=== PATIENT | male | born 1990 | race Caucasian/White ===

== ENCOUNTER 2016-11-24 11:44 | Emergency (ER) | payer SELFPAY ==
[2016-11-24] MEDS ORDERED: Ketorolac INJ* 30 MG/ML 1 ML VIAL IV ONE (12:20)
[2016-11-24] MEDS ORDERED: NS 0.9% 1000 ML* 2,000 ML IV ONE (12:20)
[2016-11-24] MEDS ORDERED: Ondansetron INJ* 2 MG/ML VIAL IV ONE (12:20)
[2016-11-24 12:30] LABS: Hematocrit 46 % (42-52); Hemoglobin 15.8 g/dl (14.0-18.0); Mean Corpuscular HGB Conc 34 g/dl (31-36); Mean Corpuscular Hemoglobin 29 pg (27-31); Mean Corpuscular Volume 85 fL (80-94); Mean Platelet Volume 7 um3 (7.4-10.4); Red Blood Count 5.45 10^6/ul (4.0-5.4); Red Cell Distribution Width 13 % (10.5-15)
--- NOTE | 2016-11-24 12:50 | RAD ---
INDICATION: Right flank pain COMPARISON: CT July 19, 2014 TECHNIQUE: Noncontrast axial source images were acquired from the level hemidiaphragms to the symphysis pubis as part of CT imaging for renal stone. Lung bases: The lung bases are clear. Liver: The liver is normal in size. Noncontrast imaging shows no evidence of a hepatic mass or ductal dilatation. Gallbladder: There are no calcified gallstones. There is no evidence of wall thickening or pericholecystic fluid.. Spleen: The spleen is normal in size. The noncontrast CT appearance is normal. Pancreas: Noncontrast imaging shows no pancreatic mass or ductal dilitation. Adrenal glands: No masses are identified. Kidneys/Bladder: There is no evidence of nephrolithiasis or CT evidence of hydronephrosis. Noncontrast imaging shows no evidence of a renal mass. The bladder is unremarkable.. Adenopathy: There is no evidence of intraperitoneal or retroperitoneal adenopathy. Evaluation is limited without oral contrast. Fluid collections: There are no free or localized fluid collections. Vessels: The aorta and iliac vessels are normal in caliber. There are no significant atherosclerotic changes. The IVC appears normal Pelvic organs: The prostate and seminal vesicles appear normal GI tract: Evaluation of the bowel is limited without oral contrast. The stomach, small bowel, and lower GI tract appear grossly normal. There are no obstructive findings. The appendix is visualized and appears normal. Soft tissues: No soft tissue abnormalities of the extraperitoneal abdomen or pelvis are identified. Osseous structures: There are no acute osseous findings. IMPRESSION: NO ACUTE CT FINDINGS. NO EVIDENCE OF NEPHROLITHIASIS. NO MASS OR INFLAMMATORY CHANGE. NORMAL APPENDIX
[2016-11-24 12:54] LABS: ALT 20 U/L (7-52); AST 19 U/L (13-39); Albumin 4.3 g/dL (3.2-5.2); Alkaline Phosphatase 72 U/L (34-104); Anion Gap 9 mmol/L (2-11); BUN/Creatinine Ratio 12.8 (8-20); Blood Urea Nitrogen 12 mg/dL (6-24); C Reactive Protein 95.79 mg/L (< 5.00); CO2 Carbon Dioxide 26 mmol/L (22-32); Calcium 9.6 mg/dL (8.6-10.3); Chloride 98 mmol/L (101-111); EGFR African American 122.9 (>60); EGFR Non-African American 95.6 (>60); Globulin 4.5 g/dL (2-4); Glucose 98 mg/dL (70-100); Lipase < 10 U/L (11.0-82.0); Potassium 3.6 mmol/L (3.5-5.0); Sodium 133 mmol/L (133-145); Total Protein 8.8 g/dL (6.4-8.9)
[2016-11-24 13:46] LABS: Urine Bacteria Absent (Absent); Urine Bilirubin Negative (Negative); Urine Glucose Negative (Negative); Urine Nitrite Negative (Negative)
--- NOTE | 2016-11-24 14:15 | RAD ---
INDICATION: Right testicular pain COMPARISON: None TECHNIQUE: Duplex interrogation of the scrotum was performed. FINDINGS: Testicles: The testicles are Normal in size. 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 There is no evidence of testicular mass. There is symmetric flow on Doppler interrogation. There is no evidence of torsion.. The right testis measures 4.1 x 2.6 x 2.6 cm and the left 3.9 x 2.5 x 3.0 cm. There is symmetric flow on Doppler interrogation. Epididymides: There is no evidence of an epididymal mass. The epididymides are normal in size. There is symmetric flow on Doppler interrogation. The right epididymal head measures 0.9 x 1.0 cm and the left 0.8 x 1.0 cm. Hydroceles: None. Varicoceles: None. Other: None. IMPRESSION: NO EVIDENCE OF TESTICULAR MASS OR TORSION. TESTICULAR MICROLITHIASIS.
[2016-11-24] MEDS ORDERED: Ciprofloxacin TAB* 500 MG PO ONE (14:54)
[2016-11-24] MEDS ORDERED: metroNIDAZOLE TAB* 250 MG PO ONE (14:54)
--- NOTE | 2016-11-24 15:03 | ED ---
Karl Huerta Billy, scribed for Gavino Sharpe MD on 11/24/16 at 1232 . GI/ HPI - HPI Summary HPI Summary: 26 yo male arrived to the ED complaining of right flank pain beginning three days ago, progressively worse since last night. Patient currently rates his pain at 5/10 here in the ED; he describes a "dull ache." However, the pain at its peak was 9/10 and has been waxing and waning since onset. Additionally, the patient is experiencing right suprapubic and groin pain which he describes as a "bubbly, cramping" sensation, which radiates to his right testicle. He also complains of difficulty urinating, increased urinary frequency, subjective fever , chills, diaphoresis, N/V/D. However, he denies any hematuria or testicular swelling. His symptoms are consistent with a previous kidney stone, which was removed surgically one year ago. The patient has a history of kidney stones and testicular pain (he reports previous epididymitis treated with antibiotics). He follows Dr. Solorzano (urologist). Appendix and gallbladder are intact. - History of Current Complaint Chief Complaint: EDFlankPain Time Seen by Provider: 11/24/16 12:08 Stated Complaint: RT SIDE FLANK/KIDNEY PAIN Hx Obtained From: Patient Onset/Duration: Started Days Ago, Still Present, Worse Since - last night Timing: Constant - pain waxes and wanes, Lasting Days Severity: Moderate Current Severity: Moderate Pain Intensity: 5 - Currently rated as 5/10, previously 9/10 Location of Pain: Radiates to: - Abdomen, right testicle, Suprapubic, Groin, Flank - Right Additional Locations for Males: Testicles - Right Testicle pain Pain Characteristics: Cramping, Other: - bubbly, gassy feeling Associated Signs and Symptoms: Positive: Nausea, Vomiting - dry heaving, Diarrhea, Diaphoresis, Fever, Dysuria, Flank Pain - right flank pain, Chills, Abdominal Pain. Negative: Hematuria Additional Signs & Symptoms: Negative: Penile Swelling - negative for testicular swelling Alleviating Factor(s): Nothing - Additional Pertinent History Have you ever had this problem before: Yes - Allergy/Home Medications Allergies/Adverse Reactions: Allergies Allergy/AdvReac Type Severity Reaction Status Date / Time No Known Allergies Allergy Verified 11/24/16 11:46 PMH/Surg Hx/FS Hx/Imm Hx Cardiovascular History: Denies: Hx Coronary Artery Disease, Hx Myocardial Infarction History: Reports: Hx Kidney Stones - RIGHT. Stents placed., Other Problems /Disorders - UTIs - Surgical History Surgery Procedure, Year, and Place: [facility] Stent placement 2014 Hx Anesthesia Reactions: No Other Surgical History: negative for cholecystectomy Infectious Disease History: No Infectious Disease History: Denies: Hx Clostridium Difficile, Hx Hepatitis, Hx Human Immunodeficiency Virus (HIV), Hx of Known/Suspected MRSA, Hx Shingles, Hx Tuberculosis, Hx Known/ Suspected VRE, Hx Known/Suspected VRSA, History Other Infectious Disease, Traveled Outside the [place] in Last 30 Days - Family History Family History: Mother is 47, alive with scoliosis. Father is 49, alive and well. - Social History Lives: With Family Alcohol Use: Occasionally Alcohol Amount: a few times a month Substance Use Type: Reports: None Smoking Status (MU): Never Smoked Tobacco Have You Smoked in the Last Year: No Review of Systems Positive: Fever, Chills, Skin Diaphoresis Positive: Abdominal Pain, Vomiting - dry heaving, Diarrhea, Nausea Positive: dysuria - painful urination , frequency, flank pain, urgency, other - testicular pain. Negative: hematuria All Other Systems Reviewed And Are Negative: Yes Physical Exam Triage Information Reviewed: Yes Vital Signs On Initial Exam: Initial Vitals Temp Pulse Resp BP Pulse Ox 97.9 F 120 20 114/69 99 11/24/16 11:46 11/24/16 11:46 11/24/16 11:46 11/24/16 11:46 11/24/16 11:46 Vital Signs Reviewed: Yes Appearance: Positive: Well-Appearing, No Pain Distress Skin: Positive: Warm, Skin Color Reflects Adequate Perfusion, Dry Head/Face: Positive: Normal Head/Face Inspection Eyes: Positive: EOMI, LUCHO ENT: Positive: Normal ENT inspection Neck: Positive: Supple, Nontender Respiratory/Lung Sounds: Positive: Clear to Auscultation, Breath Sounds Present Cardiovascular: Positive: RRR Abdomen Description: Positive: Nontender, Soft. Negative: CVA Tenderness (R), CVA Tenderness (L) Bowel Sounds: Positive: Present Male Genital Exam: Positive: normal genitalia - no testicular sweling, testicular tenderness (R) - minimal tenderness of right testical. Negative: lesions Musculoskeletal: Positive: Normal Neurological: Positive: Normal, Sensory/Motor Intact, Alert, Oriented to Person Place, Time Psychiatric: Positive: Affect/Mood Appropriate Diagnostics - Vital Signs Vital Signs Temp Pulse Resp BP Pulse Ox 11/24/16 11:46 97.9 F 120 20 114/69 99 - Laboratory Lab Results: Lab Results 11/24/16 11/24/16 11/24/16 Range/Units 12:20 12:20 12:20 WBC 14.0 H (3.5-10.8) 10^3/ul RBC 5.45 H (4.0-5.4) 10^6/ul Hgb 15.8 (14.0-18.0) g/dl Hct 46 (42-52) % MCV 85 (80-94) fL MCH 29 (27-31) pg MCHC 34 (31-36) g/dl RDW 13 (10.5-15) % Plt Count 308 (150-450) 10^3/ul MPV 7 L (7.4-10.4) um3 Neut % (Auto) 70.2 (38-83) % Lymph % (Auto) 18.7 L (25-47) % Cochran % (Auto) 10.0 H (1-9) % Eos % (Auto) 0.3 (0-6) % Baso % (Auto) 0.8 (0-2) % Absolute Neuts (auto) 9.8 H (1.5-7.7) 10^3/ul Absolute Lymphs (auto) 2.6 (1.0-4.8) 10^3/ul Absolute Monos (auto) 1.4 H (0-0.8) 10^3/ul Absolute Eos (auto) 0 (0-0.6) 10^3/ul Absolute Basos (auto) 0.1 (0-0.2) 10^3/ul Absolute Nucleated RBC 0 10^3/ul Nucleated RBC % 0 INR (Anticoag Therapy) 1.13 H (0.89-1.11) APTT 31.4 (26.0-36.3) seconds Sodium 133 (133-145) mmol/L Potassium 3.6 (3.5-5.0) mmol/L Chloride 98 L (101-111) mmol/L Carbon Dioxide 26 (22-32) mmol/L Anion Gap 9 (2-11) mmol/L BUN 12 (6-24) mg/dL Creatinine 0.94 (0.67-1.17) mg/dL Est GFR ( Amer) 122.9 (>60) Est GFR (Non-Af Amer) 95.6 (>60) BUN/Creatinine Ratio 12.8 (8-20) Glucose 98 (70-100) mg/dL Lactic Acid (0.5-2.0) mmol/L Calcium 9.6 (8.6-10.3) mg/dL Total Bilirubin 0.60 (0.2-1.0) mg/dL AST 19 (13-39) U/L ALT 20 (7-52) U/L Alkaline Phosphatase 72 (34-104) U/L C-Reactive Protein 95.79 H (< 5.00) mg/L Total Protein 8.8 (6.4-8.9) g/dL Albumin 4.3 (3.2-5.2) g/dL Globulin 4.5 H (2-4) g/dL Albumin/Globulin Ratio 1.0 (1-3) Lipase < 10 L (11.0-82.0) U/L Urine Color Urine Appearance Urine pH (5-9) Ur Specific [place] (1.010-1.030) Urine Protein (Negative) Urine Ketones (Negative) Urine Blood (Negative) Urine Nitrate (Negative) Urine Bilirubin (Negative) Urine Urobilinogen (Negative) Ur Leukocyte Esterase (Negative) Urine WBC (Auto) (Absent) Urine RBC (Auto) (Absent) Ur Squamous Epith Cells (Absent) Urine Bacteria (Absent) Urine Glucose (Negative) 11/24/16 11/24/16 Range/Units 12:20 13:15 WBC (3.5-10.8) 10^3/ul RBC (4.0-5.4) 10^6/ul Hgb (14.0-18.0) g/dl Hct (42-52) % MCV (80-94) fL MCH (27-31) pg MCHC (31-36) g/dl RDW (10.5-15) % Plt Count (150-450) 10^3/ul MPV (7.4-10.4) um3 Neut % (Auto) (38-83) % Lymph % (Auto) (25-47) % Cochran % (Auto) (1-9) % Eos % (Auto) (0-6) % Baso % (Auto) (0-2) % Absolute Neuts (auto) (1.5-7.7) 10^3/ul Absolute Lymphs (auto) (1.0-4.8) 10^3/ul Absolute Monos (auto) (0-0.8) 10^3/ul Absolute Eos (auto) (0-0.6) 10^3/ul Absolute Basos (auto) (0-0.2) 10^3/ul Absolute Nucleated RBC 10^3/ul Nucleated RBC % INR (Anticoag Therapy) (0.89-1.11) APTT (26.0-36.3) seconds Sodium (133-145) mmol/L Potassium (3.5-5.0) mmol/L Chloride (101-111) mmol/L Carbon Dioxide (22-32) mmol/L Anion Gap (2-11) mmol/L BUN (6-24) mg/dL Creatinine (0.67-1.17) mg/dL Est GFR ( Amer) (>60) Est GFR (Non-Af Amer) (>60) BUN/Creatinine Ratio (8-20) Glucose (70-100) mg/dL Lactic Acid 1.0 (0.5-2.0) mmol/L Calcium (8.6-10.3) mg/dL Total Bilirubin (0.2-1.0) mg/dL AST (13-39) U/L ALT (7-52) U/L Alkaline Phosphatase (34-104) U/L C-Reactive Protein (< 5.00) mg/L Total Protein (6.4-8.9) g/dL Albumin (3.2-5.2) g/dL Globulin (2-4) g/dL Albumin/Globulin Ratio (1-3) Lipase (11.0-82.0) U/L Urine Color Tere Urine Appearance Cloudy Urine pH 5.0 (5-9) Ur Specific [place] 1.028 (1.010-1.030) Urine Protein 2+(100 mg/dl) H (Negative) Urine Ketones Negative (Negative) Urine Blood 2+ H (Negative) Urine Nitrate Negative (Negative) Urine Bilirubin Negative (Negative) Urine Urobilinogen Negative (Negative) Ur Leukocyte Esterase Negative (Negative) Urine WBC (Auto) 2+(11-20/hpf) H (Absent) Urine RBC (Auto) 2+(6-10/hpf) H (Absent) Ur Squamous Epith Cells Present H (Absent) Urine Bacteria Absent (Absent) Urine Glucose Negative (Negative) Result Diagrams: 11/24/16 12:20 11/24/16 12:20 Lab Statement: Any lab studies that have been ordered have been reviewed, and results considered in the medical decision making process. - CT CT A/P CT Interpretation Completed By: Radiologist - IMPRESSION: NO ACUTE CT FINDINGS. NO EVIDENCE OF NEPHROLITHIASIS. NO MASS OR INFLAMMATORY CHANGE. NORMAL APPENDIX - Ultrasound No standard instances Ultrasound Interpretation Completed By: Radiologist - Testicular US. IMPRESSION : NO EVIDENCE OF TESTICULAR MASS OR TORSION. TESTICULAR MICROLITHIASIS. GIGU Course/Dx - Course Assessment/Plan: DISCUSSED RESULTS WITH PATIENT. APPENDIX IS NORMAL ON CT. U/S OF TESTICLES NL. WILL TREAT WITH CIPRO AND FLAGYL TO COVER FOR PROSTATITIS/ COLITIS. TOLD PATIENT AND , AND THEY AGREED, TO RETURN IF WORSE OR SX PERSIST. DISCHARGE HOME STABLE. - Diagnoses Provider Diagnoses: Abdominal pain, Flank pain Discharge - Discharge Plan Condition: Stable Disposition: HOME Prescriptions: Ciprofloxacin TAB* [Cipro Tab*] 500 mg PO BID #20 tab Metronidazole [Flagyl 500 MG TAB] 500 mg PO TID #30 tab Ondansetron ODT TAB* [Zofran Odt TAB*] 4 mg PO Q6H PRN #10 tab.odt PRN Reason: Nausea Patient Education Materials: Abdominal Pain (ED), Flank Pain (ED) Referrals: [facility] [Outside] Additional Instructions: FOLLOW UP WITH YOUR DOCTOR. THE ANTIBIOTICS ARE TO TREAT FOR POSSIBLE PROSTATITIS OR COLITIS. YOUR APPENDIX APPEARED NORMAL ON CT HOWEVER, YOU NEED TO RETURN TO THE EMERGENCY DEPARTMENT RIGHT AWAY IF YOUR CONDITION IS WORSENING OR PERSISTS. RETURN TO THE EMERGENCY DEPARTMENT FOR ANY WORSENING OF YOUR CONDITION: PAIN, FEVER, VOMITING, YOU FEEL ILL OR QUESTIONS OR CONCERNS. The documentation as recorded by the Karl beckwith Billy accurately reflects the service I personally performed and the decisions made by me, Gavino Sharpe MD.
[2016-11-24 15:23] VITALS: BP 133/78
== END 2016-11-24 15:27 | disposition home or self-care (01) ==
LOC: ED 11:44
DX: R10.84 Generalized abdominal pain (principal); R11.2 Nausea with vomiting, unspecified; R19.7 Diarrhea, unspecified; R50.9 Fever, unspecified; R35.0 Frequency of micturition
CPT/HCPCS: 36415; 74176; 76870; 80053; 81003; 81015; 83605; 83690; 85025; 85610; 85730; 86140; 96374; 96375; 99283; A9270-GY; J1885; J2405